=== PATIENT | female | born 1985 | race Caucasian/White ===

== ENCOUNTER 2022-06-18 07:25 | Outpatient (CLI) | payer OTHER, SELFPAY | END 2022-06-18 07:26 | disposition home or self-care (01) | PROVIDERS: PCP Family Medicine; Visit Provider Family Medicine | DX: M47.816 Spondylosis without myelopathy or radiculopathy, lumbar region (principal) | CPT/HCPCS: 64493; J0702; Q9966 ==

== ENCOUNTER 2024-01-12 10:14 | Emergency (ER) | payer OTHER, SELFPAY ==
[2024-01-12 10:32] VITALS: BP 125/68; PULSE 79; RESP 20; TEMP 36.5; O2SAT 98
[2024-01-12 11:00] LABS: Appearance Urine Clear (Clear); Bilirubin Urine Negative (Negative); Blood Urine 2+ (Negative); Color Urine Dark yellow (Yellow); Glucose Urine Negative (Negative); Ketones Urine Negative (Negative); Leukocyte Esterase Urine Negative (Negative); Nitrite Urine Negative (Negative); Protein Urine 1+ (Negative); Specific Gravity Urine 1.025 (1.000-1.030); Urobilinogen Urine 0.2 (0.2-1.0); pH Urine 6.5 (5.0-8.5)
--- NOTE | 2024-01-12 11:03 | ED.ABDPAIN ---
HPI - Abdominal Pain General Time Seen by Provider: 11:03 Date Seen: 01/12/24 Chief Complaint: Abdominal Pain Stated Complaint: abdominal pain Time Seen by Provider: 01/12/24 11:03 Source: patient Mode of arrival: ambulatory Limitations: no limitations History of Present Illness HPI narrative: Rosario is a very pleasant 38-year-old female with a history of Crohn's controlled on Remicade equivalent with no flare since 2016 who comes to the emergency room with complaints of right lower quadrant pain. Patient notes that she had discomfort which was mild last night but became much worse today. She states that she notes when she pulls her right leg up it feels much better. She has not taken any pain medications. She states that she also has urinary urgency and urge to go to the bathroom but is only urinating small amounts. She denies history of kidney stones and denies that it hurts to urinate. Denies possibility of as she is not sexually active. Patient agrees that she is passing gas and has not had any bloating. She denies any bulging or history of hernias. She has not had a fever but notes that when she was driving into the ER she began to feel very nauseated and clammy. That she went to her mother's and had her mother drive her the rest of the way in. The pain is deep in her right lower quadrant. Position changes do help as previously noted. Letting her leg down on the floor increases her discomfort. Pain from her Crohn's flares was typically in the midline and this is unlike which she has experienced in the past. Related Data Previous Rx's Medication Instructions Recorded ciprofloxacin HCl 500 mg tablet 500 mg PO BID #10 tabs 01/12/24 (Cipro) tamsulosin 0.4 mg capsule (Flomax) 0.4 mg PO DAILY #7 caps 01/12/24 Allergies Allergy/AdvReac Type Severity Reaction Status Date / Time No Known Drug Allergies Allergy Verified 01/12/24 12:21 Review of Systems Status of ROS Reports: 10 or more systems reviewed and unremarkable except as noted in History and below Narrative Positive for tobacco use Const Denies: fever or chills ENMT Denies: nasal discharge or nasal congestion Cardio Denies: chest pain or shortness of breath with exertion Resp Denies: shortness of breath or cough GI Reports: abdominal pain and nausea; Denies: vomiting, diarrhea or constipation Reports: urinary frequency and urinary urgency; Denies: painful urination or blood in urine Musculo Denies: back pain PFSH [facility] Social History Smoking Status: Current every day smoker What tobacco products do you use: cigarettes Smoking packs per day: 1 Smoking cigarettes per day: 20.0 How often do you have a drink containing alcohol: 2-4 times a month AUDIT-C Alcohol total score: 2 Non-prescribed substance use: denies use service: No Exam Narrative: Exam Narrative: Past medical history: Crohn's disease-last flare 2015. Is on a Remicade equivalent medication. Tobacco use-1 pack per day Patient is alert and oriented External ears eyes nose clear. Heart with regular rate and rhythm. Lungs are clear bilaterally. Abdomen is soft. Minimal tenderness right lower quadrant. Lower extremities with scant peripheral edema. Moving all extremities. She is reclining on the chair in room 4 with her right hip flexed. Const: Vital Signs, click to edit/add: Vital Signs - 24 hr 01/12/24 10:32 Temperature 97.7 F Pulse Rate [Pulse Oximeter] 79 Respiratory Rate 20 Blood Pressure [Ri ght Upper Arm] 125/68 Pulse Oximetry 98 Oxygen Delivery Me thod Room Air Documenting provider has reviewed patient's vital signs: yes Course Course ED Course: Differential diagnosis includes but is not limited to urinary retention, ureteral colic, kidney stone, UTI, appendicitis, at this time will place IV and give Toradol 15 mg and Zofran 4 mg and 1 L of normal saline. Will draw labs to include CBC, comprehensive panel, CRP, urinalysis. Plan on abdominal CT Reevaluation(s) Reevaluation #1: Patient notes that she is much improved after Toradol and Zofran and fluids. Vital Signs Vital signs: Initial Vital Signs Temperature 97.7 F 01/12/24 10:32 Temperature Source Temporal Artery Scan 01/12/24 10:32 Pulse Rate 79 01/12/24 10:32 Pulse Rhythm Regular 01/12/24 10:32 Respiratory Rate 20 01/12/24 10:32 Blood Pressure 125/68 01/12/24 10:32 Blood Pressure Mean 87 01/12/24 10:32 Blood Pressure Position Sitting 01/12/24 10:32 Pulse Oximetry 98 01/12/24 10:32 Oxygen Delivery Method Room Air 01/12/24 10:32 Vital Signs Temperature 97.7 F 01/12/24 10:32 Pulse Rate 79 01/12/24 10:32 Respiratory Rate 20 01/12/24 10:32 Blood Pressure 125/68 01/12/24 10:32 Pulse Oximetry 98 01/12/24 10:32 Oxygen Delivery Method Room Air 01/12/24 10:32 Temperature 97.7 F 01/12/24 10:32 Pulse Rate 79 01/12/24 10:32 Respiratory Rate 20 01/12/24 10:32 Blood Pressure 125/68 01/12/24 10:32 Pulse Oximetry 98 01/12/24 10:32 Oxygen Delivery Method Room Air 01/12/24 10:32 Medications Administered Medications: Discontinued Medications Generic Name Dose Route Start Last Admin Trade Name Freq PRN Reason Stop Dose Admin Sodium Chloride 1,000 mls @ 1,000 mls/hr 01/12/24 11:09 01/12/24 11:43 0.9 % Sodium Chloride 1000 Ml IV 01/12/24 12:08 1,000 mls/hr .Q1H LEXUS Administration Ketorolac Tromethamine 15 mg 01/12/24 11:09 01/12/24 11:47 Ketorolac 15 Mg/Ml Inj IVP 01/12/24 11:10 15 mg ONCE ONE Administration Ondansetron HCl 4 mg 01/12/24 11:09 01/12/24 11:46 Ondansetron 2 Mg/Ml Inj IVP 01/12/24 11:10 4 mg ONCE ONE Administration MDM - Abdominal Pain MDM Narrative Medical decision making narrative: 1. Ureteral colic-appears to be a 5 mm stone at the UVJ on the right side. Patient does have upstream uro the real thickening. Radiology notes possibility of superimposed infection. Fortunately urinalysis does not show any evidence of white cells and is negative for leukocyte esterase. Urine does show 25-50 rbc's. Given the fact that she is immunosuppressed on Remicade equivalent we will be treating her with Cipro 500 mg p.o. b.i.d. x7 days while awaiting stone to pass. Also we use Flomax 0.4 mg p.o. daily for smooth muscle relaxation hopefully expediting this stone passage. At this time patient has had significant relief with Toradol. She feels that that will be sufficient at home and thus will have her use 600 mg every 8 hours as needed. I have asked her to push fluids but she does not have to over hydrate. She has to strain her urine. If she has continued pain and the stone has not passed would like her to be seen by [facility] with potential referral to Urology. If she has vomiting fever worsening symptoms she will return to the emergency room for evaluation. 2. History of Crohn's disease-stable 3. History of tobacco use-advised to quit. 4. Disposition-home with Mom at this time. Return for worsening symptoms and as needed. Medical Records Attestation: I reviewed the patient's medical records. Lab Data Attestation: I reviewed the patient's lab results. Labs: Lab Results 01/12/24 01/12/24 Range/Units 10:55 11:30 WBC 9.41 (4.50-11.00) K/uL RBC 4.99 (4.00-5.20) m/uL Hgb 15.1 (12.0-16.0) gm/dL Hct 44.4 (33.0-51.0) % MCV 89 (80-100) fL MCH 30 (26-34) pg MCHC 34 (32-36) gm/dL RDW Coeff of Jenelle 12.8 (11.5-15.5) % Plt Count 371 (140-440) K/uL Neut % (Auto) 74.5 H (42.0-72.0) % Lymph % (Auto) 19.3 L (20-44) % [place] % (Auto) 4.5 (0.0-11.0) % Eos % (Auto) 1.3 (0.0-7.0) % Baso % (Auto) 0.2 (0.0-3.0) % Neut # (Auto) 7.00 (1.7-7.0) K/uL Lymph # (Auto) 1.80 (0.90-2.90) K/uL [place] # (Auto) 0.40 (0.00-0.90) K/UL Eos # (Auto) 0.12 (0.00-0.50) K/uL Baso # (Auto) 0.02 (0.00-0.30) K/uL Abs Immat Gran (auto) 0.02 (0.00-0.30) K/uL Imm/Tot Granulo (auto) 0.2 % Sodium 137 (135-149) mmol/L Potassium 3.9 (3.6-5.1) mmol/L Chloride 106 (96-114) mmol/L Carbon Dioxide 27 (20-32) mmol/L Anion Gap 4 L (7-15) mEq/L BUN 11 (5-24) mg/dL Creatinine 0.7 (0.5-1.5) mg/dL Estimated GFR 113 ml/min Glucose 109 (60-115) mg/dL Calcium 9.4 (8.4-10.6) mg/dL Total Bilirubin 0.8 (0.1-1.5) mg/dL AST 35 (12-35) U/L ALT 37 H (4-35) U/L Alkaline Phosphatase 72 (40-150) U/L C-Reactive Protein 0.9 (0.5-1.0) mg/dL Total Protein 8.5 H (6.0-8.3) g/dL Albumin 4.7 (3.3-5.0) g/dL Urine Color Dark yellow (Yellow) Urine Appearance Clear (Clear) Urine pH 6.5 (5.0-8.5) Ur Specific [place] 1.025 (1.000-1.030) Urine Protein 1+ A (Negative) Urine Glucose (UA) Negative (Negative) Urine Ketones Negative (Negative) Urine Blood 2+ A (Negative) Urine Nitrite Negative (Negative) Urine Bilirubin Negative (Negative) Urine Urobilinogen 0.2 (0.2-1.0) Ur Leukocyte Esterase Negative (Negative) Urine RBC 25-50 A (0-2) Urine WBC 0-2 (0-5) Ur Squamous Epith Cells Few (None-Few) Amorphous Sediment Few A (None) Urine Bacteria Few A (None) Urine Mucus Moderate A (None) Imaging Data CT scan - abdomen: Attestation: I have reviewed the pertinent imaging results. My impression: I do note mild hydro on the right but I do not identify a stone. Radiologist's impression: Lung bases: Mild bibasilar atelectasis. Liver: Diffuse steatosis. Subcentimeter low-density lesion in the left lobe of the liver on series 2, image 26 is similar to prior. No worrisome liver lesion. Patent hepatic vasculature. Gallbladder and bile ducts: Normal gallbladder. No bile duct dilation. Pancreas: Normal. Spleen: Normal. Adrenal glands: Normal. Kidneys: Normal parenchyma. No cyst or solid mass. There is a 5 millimeter calculus at the right distal ureter just above the ureterovesicular junction. There is mild upstream ureterectasis and pelviectasis with urothelial thickening and enhancement, primarily along the mid to distal ureter. No left-sided urinary tract calculi or urinary tract dilatation. Urinary bladder: Normal. Vessels: Normal. Pelvis: Intrauterine device appears to be well positioned within the uterus. Physiologic appearance of both ovaries. Bowel: No dilated or inflamed bowel. Normal appendix. Fatty deposition in the wall of the terminal ileum consistent with a history of Crohn`s disease. No active inflammation seen. Lymph nodes: No adenopathy. Peritoneum: No ascites. Bones: No fractures. No focal worrisome bone lesions. Asymmetric right L5-S1 facet arthritis. Abdominal wall: Diastasis of the midline periumbilical abdominal wall with a tiny fat containing hernia. IMPRESSION: There is a 5 millimeter obstructing right distal ureteral calculus. Upstream urothelial thickening and enhancement may indicate superimposed urinary tract infection. No pyelonephritis seen. Discharge Plan Discharge Clinical Impression: Colic, ureteral, Nephrolithiasis Patient Disposition: Home, Self-Care Condition: Improved Additional Instructions: For discomfort: Ibuprofen 600 mg every 8 hours as needed. We are going to have you start an antibiotic called Cipro to hopefully prevent a urinary tract infection. Will also have a use of medication called Flomax for soft muscle relaxation that will hopefully expedite the passage of the stone. I would ask that you strain your urine and should you see a stone take it to your doctor for analysis. If you have ongoing discomfort and symptoms please follow-up with your regular doctor this week for recheck. For fever, vomiting, worsening symptoms return to the emergency room. Prescriptions: New ciprofloxacin HCl [Cipro] 500 mg tablet 500 mg PO BID Qty: 10 0RF tamsulosin [Flomax] 0.4 mg capsule 0.4 mg PO DAILY Qty: 7 0RF Follow Up/Referrals: Tasneem Wiggins DO [Primary Care Provider] - Stand Alone Forms: [employer] Info Instructions
--- NOTE | 2024-01-12 11:09 | CT_ITS ---
Patient: HEAVENLY SHETTY Facility:?[facility] Patient ID:?[id number] Site Patient ID:?[id number]. Site :?[id number] Study:?CT-Abdomen/Pelvis 118CC ISOVUE 370-01/12/2024 12:20:51 PM Ordering Physician:?DR. CAN Final Report: INDICATION: Nausea, vomiting, right lower quadrant pain. History of Crohn`s disease COMPARISON: 02/13/2015 TECHNIQUE: CT of the abdomen and pelvis with intravenous contrast. Multiplanar reformats are included. Contrast: 118 mL Isovue 370 FINDINGS: Lung bases: Mild bibasilar atelectasis. Liver: Diffuse steatosis. Subcentimeter low-density lesion in the left lobe of the liver on series 2, image 26 is similar to prior. No worrisome liver lesion. Patent hepatic vasculature. Gallbladder and bile ducts: Normal gallbladder. No bile duct dilation. Pancreas: Normal. Spleen: Normal. Adrenal glands: Normal. Kidneys: Normal parenchyma. No cyst or solid mass. There is a 5 millimeter calculus at the right distal ureter just above the ureterovesicular junction. There is mild upstream ureterectasis and pelviectasis with urothelial thickening and enhancement, primarily along the mid to distal ureter. No left-sided urinary tract calculi or urinary tract dilatation. Urinary bladder: Normal. Vessels: Normal. Pelvis: Intrauterine device appears to be well positioned within the uterus. Physiologic appearance of both ovaries. Bowel: No dilated or inflamed bowel. Normal appendix. Fatty deposition in the wall of the terminal ileum consistent with a history of Crohn`s disease. No active inflammation seen. Lymph nodes: No adenopathy. Peritoneum: No ascites. Bones: No fractures. No focal worrisome bone lesions. Asymmetric right L5-S1 facet arthritis. Abdominal wall: Diastasis of the midline periumbilical abdominal wall with a tiny fat containing hernia. IMPRESSION: There is a 5 millimeter obstructing right distal ureteral calculus. Upstream urothelial thickening and enhancement may indicate superimposed urinary tract infection. No pyelonephritis seen. Please note that all CT scans at this facility use dose modulation, iterative reconstruction, and/or weight-based dosing when appropriate to reduce radiation dose to as low as reasonably achievable. Dictated by Manasa Washington MD @ 01/12/2024 12:33:48 PM Signed by:?Manasa Washington MD @01/12/2024 12:33:48 PM (Electronic Signature)
[2024-01-12 11:12] LABS: Amorphous Sediment Urine Few; Bacteria Urine Few; Mucus Urine Moderate; RBC Urine 25-50 (0-2); Squamous Epithelial Cell Urine Few (None-Few); WBC Urine 0-2 (0-5)
[2024-01-12 11:42] LABS: Basophils Absolute Auto 0.02 K/uL (0.00-0.30); Basophils Percent Auto 0.2 % (0.0-3.0); Eosinophils Absolute Auto 0.12 K/uL (0.00-0.50); Eosinophils Percent Auto 1.3 % (0.0-7.0); Hematocrit 44.4 % (33.0-51.0); Hemoglobin* 15.1 gm/dL (12.0-16.0); Immature Granulocytes Abs Auto 0.02 K/uL (0.00-0.30); Immature Granulocytes Pct Auto 0.2 %; Lymphocytes Percent Auto 19.3 % (20-44); Mean Corpuscular HGB Conc 34 gm/dL (32-36); Mean Corpuscular Hemoglobin 30 pg (26-34); Mean Corpuscular Volume 89 fL (80-100); Monocytes Percent Auto 4.5 % (0.0-11.0); Neutrophils Percent Auto 74.5 % (42.0-72.0); Platelet Count* 371 K/uL (140-440); RDW Coefficient of Variation % 12.8 % (11.5-15.5); Red Blood Count 4.99 m/uL (4.00-5.20); White Blood Count* 9.41 K/uL (4.50-11.00)
[2024-01-12 11:43] LABS: Slide Review Reflex No
[2024-01-12] MEDS: 0.9 % SODIUM CHLORIDE 1000 ml 1,000 ML IV (11:43)
[2024-01-12] MEDS: ONDANSETRON 2 MG/ML inj 4 MG IVP (11:46)
[2024-01-12] MEDS: KETOROLAC 15 MG/ML inj IVP (11:47)
[2024-01-12 11:58] LABS: Albumin* 4.7 g/dL (3.3-5.0); Chloride* 106 mmol/L (96-114); Sodium* 137 mmol/L (135-149)
[2024-01-12 11:59] LABS: Potassium* 3.9 mmol/L (3.6-5.1)
[2024-01-12 12:01] LABS: Anion Gap 4 mEq/L (7-15); Carbon Dioxide* 27 mmol/L (20-32); Creatinine* 0.7 mg/dL (0.5-1.5); Estimated Glomerular Filt Rate 113 ml/min
[2024-01-12 12:02] LABS: Alanine Aminotransferase* 37 U/L (4-35); Alkaline Phosphatase* 72 U/L (40-150); Aspartate Amino Transferase* 35 U/L (12-35); Bilirubin Total* 0.8 mg/dL (0.1-1.5); Blood Urea Nitrogen* 11 mg/dL (5-24); Calcium* 9.4 mg/dL (8.4-10.6); Glucose* 109 mg/dL (60-115); Total Protein* 8.5 g/dL (6.0-8.3)
[2024-01-12 12:05] LABS: C Reactive Protein* 0.9 mg/dL (0.5-1.0)
== END 2024-01-12 13:48 | disposition home or self-care (01) ==
PROVIDERS: Emergency Provider Family Medicine; PCP Family Medicine
DX: N23 Unspecified renal colic (principal); N20.0 Calculus of kidney
CPT/HCPCS: 36415; 74177; 80053; 81001; 85025; 86140; 87086; 96361; 96374; 96375; 99284; 99285; J1885; J2405; J7030; Q9967

== ENCOUNTER 2024-05-18 08:13 | Outpatient (CLI) | payer OTHER, SELFPAY | END 2024-05-18 08:14 | disposition home or self-care (01) | LOC: INJ CL 08:14 | PROVIDERS: PCP Family Medicine; Visit Provider Family Medicine | DX: M47.816 Spondylosis without myelopathy or radiculopathy, lumbar region (principal) | CPT/HCPCS: 64493; J0702; Q9966 ==